=== PATIENT | female | born 1975 | race African-American/Black ===

== ENCOUNTER 2021-01-08 01:41 | Emergency (ER) | payer BC, MEDICAID ==
[~2021-01-08] VITALS: Ht 165.1 cm; Wt 79.4 kg
--- NOTE | 2021-01-08 01:51 | NUR ---
PATIENT TO ER BED 3 C/O MIDSTERNAL DISCOMFORT SINCE LAST NIGHT. PATIENT STATES THAT SHE HAS BEEN HAVING A HEADACHE FOR A WEEK. PATIENT IS ALERT AND ORIENTED x4. DENIES SHORTNESS OF BREATH. PATIENT IS BREATHING EVENLY AND UNLABORED ON ROOM AIR AT 96%. PATIENT IS CONNECTED TO THE EVAPORATOR.
[2021-01-08] MEDS ORDERED: ASPIRIN 81 MG TAB.CHEW ONE (02:07)
[2021-01-08 02:20] LABS: BASOPHILS # (AUTO) 0.1 /CMM (0.0-0.2); BASOPHILS % (AUTO) 0.4 % (0.0-2.0); EOSINOPHILS % (AUTO) 1.2 % (0.0-6.0); HEMATOCRIT 38 % (33-45); HEMOGLOBIN 12.6 g/dL (11.5-14.8); LYMPHOCYTES # (AUTO) 4.9 /CMM (0.8-4.8); LYMPHOCYTES % (AUTO) 28.1 % (20.0-44.0); MEAN CORPUSCULAR HGB CONC 34 g/dl (31.0-36.0); MEAN CORPUSCULAR VOLUME 95 fL (82-100); MONOCYTES # (AUTO) 1.2 /CMM (0.1-1.30); MONOCYTES % (AUTO) 6.8 % (2.0-12.0); NEUTROPHILS % (AUTO) 63.5 % (43.0-81.0); PLATELET COUNT (AUTO) 436 /CMM (150-450); RED BLOOD CELL COUNT(AUTO) 3.98 MIL/uL (4.0-5.2); WHITE BLOOD COUNT (AUTO) 17.3 K/uL (4.3-11.0)
[2021-01-08] MEDS ORDERED: ONDANSETRON HCL/PF 4 MG/2 ML VIAL ONE (02:22)
[2021-01-08] MEDS ORDERED: IV NS 0.9% 1,000 ML BAG IV ONE (02:30)
[2021-01-08] MEDS ORDERED: ASPIRIN 81 MG TAB.CHEW PO ONE (02:30)
[2021-01-08] MEDS ORDERED: ONDANSETRON HCL/PF - ER 4 MG/2 ML VIAL IV ONE (02:30)
--- NOTE | 2021-01-08 02:43 | NUR ---
RAD AT BED SIDE
[2021-01-08 02:44] LABS: ALANINE AMINOTRANSFERASE 22 U/L (12-78); ALBUMIN 3.6 g/dL (3.4-5.0); ALKALINE PHOSPHATASE 60 U/L (46-116); ASPARTATE AMINOTRANSFERASE 20 U/L (15-37); BILIRUBIN,DIRECT 0.1 mg/dL (0.0-0.2); BILIRUBIN,TOTAL 0.4 mg/dL (0.2-1.0); CARBON DIOXIDE 26 mmol/L (21-32); CHLORIDE 102 mmol/L (98-107); CREATININE 1.1 mg/dL (0.6-1.3); GLUCOSE 136 mg/dL (74-106); NT-PRO BNP 101 pg/mL (0-125); POTASSIUM 3.5 mmol/L (3.5-5.1); SODIUM SERUM 139 mmol/L (136-145); TOTAL PROTEIN, SERUM 7.3 g/dL (6.4-8.2); UREA NITROGEN, BLOOD 17 mg/dL (7-18)
[2021-01-08] MEDS ORDERED: ONDA4TAB5 PO (05:49)
--- NOTE | 2021-01-08 07:10 | NUR ---
Patient discharged to home in stable condition. Written and verbal after care instructions given. Patient verbalizes understanding of instruction.
--- NOTE | 2021-01-08 07:10 | NUR ---
IV removed. Catheter intact and site benign. Pressure and 4x4 applied to site. No bleeding noted.
[2021-01-08 07:12] VITALS: BP 104/65
== END 2021-01-08 07:12 | disposition home or self-care (01) ==
LOC: ER 01:42
DX: R07.9 Chest pain, unspecified (principal); R55 Syncope and collapse; R11.0 Nausea; I25.2 Old myocardial infarction; I10 Essential (primary) hypertension; Z95.5 Presence of coronary angioplasty implant and graft; F31.9 Bipolar disorder, unspecified; E78.5 Hyperlipidemia, unspecified; F41.9 Anxiety disorder, unspecified; Z20.822 Contact with and (suspected) exposure to COVID-19
CPT/HCPCS: 36415; 71045; 80048; 80076; 83880; 84484 ×2; 85025; 87426; 93005 ×2; 96361; 96374; 99285; C9803; J2405 ×2; J7030